=== PATIENT | male | born 1930 | race Caucasian/White ===

== ENCOUNTER 2017-04-09 09:10 | Day surgery (SDC) | payer MEDICARE, OTHER ==
[~2017-04-09 09:10] MED LIST: Lactated Ringers 1,000 ML IV SCH; Sodium Chloride 0.9% 10 ML Syringe FLUSH PRN
[2017-04-09] MEDS ORDERED: fentaNYL 100 MCG/2 ML SDV ONE ×2 (11:13→12:34)
[2017-04-09] MEDS ORDERED: Midazolam 1 MG/ML 2 ML SDV ONE ×2 (11:13→12:34)
[2017-04-09] MEDS ORDERED: Propofol 200 MG/20 ML SDV ONE ×2 (11:14→12:34)
--- NOTE | 2017-04-09 11:23 | PCM.PN ---
- General Info Date of Service: 04/09/17 - Review of Systems Systems Review Comment:: 86-year-old male here for excision of right neck mass. The patient is medically stable to proceed today with no significant recent change in his health status. The site of the mass is confirmed with the patient and marked. The procedures again reviewed with the patient and he agrees to proceed accepting risks. - Patient Data Vitals - Most Recent: Last Vital Signs Temp 98.1 F 04/09/17 09:39 Pulse 64 04/09/17 09:39 Resp 20 04/09/17 09:39 BP 141/74 H 04/09/17 09:39 Pulse Ox 96 04/09/17 09:39 Weight - Most Recent: 97.976 kg Lab Results Last 24 Hours: Laboratory Results - last 24 hr 04/09/17 Range/Units 10:03 POC Glucose 188 H (65-110) mg/dl Med Orders - Current: Current Medications Lactated Ringer's (Ringers, Lactated) 1,000 mls @ 125 mls/hr IV ASDIRECTED CELESTE Last Admin: 04/09/17 10:25 Dose: 125 mls/hr Sodium Chloride (Saline Flush) 10 ml FLUSH ASDIRECTED PRN PRN Reason: Keep Vein Open Discontinued Medications Fentanyl (Sublimaze) Confirm Administered Dose 100 mcg .ROUTE .STK-MED ONE Stop: 04/09/17 11:14 Midazolam HCl (Versed 1 Mg/Ml) Confirm Administered Dose 2 mg .ROUTE .STK-MED ONE Stop: 04/09/17 11:14 Propofol (Diprivan 20 Ml) Confirm Administered Dose 200 mg .ROUTE .STK-MED ONE Stop: 04/09/17 11:15 - Problem List Review Problem List Initiated/Reviewed/Updated: Yes - Assessment Assessment:: Right neck mass - Plan Plan:: Excision of right neck mass
[2017-04-09] MEDS ORDERED: Bupivacaine 0.25%/EPINEPHrine 1:200,000 30 ML SDV INJECT ONE (12:00)
[2017-04-09] MEDS ORDERED: Bacitracin Oint 1 GM U/D Packet TOP ONE (12:25)
--- NOTE | 2017-04-09 12:44 | PCM.OPNOTE ---
- General Post-Op/Procedure Note Date of Surgery/Procedure: 04/09/17 Operative Procedure(s): Excision of Right Neck Mass Findings: Cystic Mass Right side of neck containing thin and purulent appearing fluid Pre Op Diagnosis: Right neck mass Post-Op Diagnosis: Same Anesthesia Technique: Local, MAC Primary Surgeon: Theron Jackson Pathology: Right neck mass with culture or right neck mass fluid Output, Urine Amount: 0 EBL in mLs: 5 Complications: None Condition: Good
--- NOTE | 2017-04-09 14:17 | OR ---
Date of Procedure: 04/09/2017 PREOPERATIVE DIAGNOSIS: Right neck mass. POSTOPERATIVE DIAGNOSIS: Right neck mass. OPERATION PERFORMED: Excision of right neck mass. INDICATIONS FOR SURGERY: This 86-year-old male has developed a mass in the right side of his neck. This mass has persisted over several weeks and excision is planned for diagnostic purposes. FINDINGS: In the right side of the patient's neck anterior to the sternocleidomastoid muscle, but inferior to the mandibular ramus, there is approximately 2 cm mass, which appeared to be consistent with a lymph node. This mass had an internal cystic component containing thin serous and some what appeared to be old purulent drainage. Findings were felt to be consistent with a lymph node that had been previously infected. There were some inflammatory adhesions around the lymph node. PROCEDURE IN DETAIL: The patient was taken to the operating room. He was given intravenous sedation and positioned with his head turned to the left exposing the right side of the neck. This area was prepped with Betadine, draped, and anesthetized with 0.25% Marcaine with epinephrine. An overlying linear incision was made over the palpable mass on the right side of the neck and dissection proceeded down through the platysma muscle to the mass, which was frey in color and was able to be identified. Careful dissection freed more superficial portion of the mass from the surrounding tissue. During the dissection, the mass was entered and the fluid as described above drained from this mass. Because of its appearance, cultures of fluid were obtained. This resulted in decompression of the mass and the mass itself was excised using careful blunt and cautery dissection removing it from the right side of the neck and it was submitted for pathologic evaluation. A suture ligature of 4-0 Vicryl was placed deep into the wound to assure good hemostasis. The wound was irrigated and then closed approximating the platysma muscle with interrupted 4-0 Vicryl, and the skin was closed with a running 4-0 Vicryl subcuticular stitch, Steri-Strips, and benzoin. Antibiotic ointment and sterile dressing were placed. The patient was then taken from the operating room in satisfactory condition. ESTIMATED BLOOD LOSS: 5 mL. COMPLICATIONS: None. PROGNOSIS: Good. MARIA D Jackson MD /[id number] [facility]ALTuan
== END 2017-04-09 14:55 | disposition home or self-care (01) ==
LOC: LL.SDS 09:10
PROVIDERS: ATTEND Surgery
DX: K09.8 Other cysts of oral region, not elsewhere classified (principal); L90.5 Scar conditions and fibrosis of skin; E11.9 Type 2 diabetes mellitus without complications; I48.91 Unspecified atrial fibrillation; G47.30 Sleep apnea, unspecified; Z85.51 Personal history of malignant neoplasm of bladder; Z88.8 Allergy status to other drugs, medicaments and biological substances; Z91.040 Latex allergy status; Z79.4 Long term (current) use of insulin; Z79.01 Long term (current) use of anticoagulants
CPT/HCPCS: 00320; 11422; 82962; 87070; 87077; 88305; J2250; J2704; J3010; J7120